=== PATIENT | female | born 1985 | race Caucasian/White ===

== ENCOUNTER 2016-05-26 14:44 | Inpatient (IN) | payer OTHER ==
[2016-06-02] MEDS ORDERED: LACTATED RINGERS 1,000 ML IV PRN (14:55)
[2016-06-02] MEDS ORDERED: OXYTOCIN IN LR 500 ML IV ONE (14:55)
[2016-06-02] MEDS ORDERED: IV START KIT ONE (15:27)
[2016-06-02] MEDS ORDERED: OXYTOCIN 10 UNITS/ML VIAL ONE (15:27)
[2016-06-02] MEDS ORDERED: MINERAL OIL 25 ML BOT ONE (15:28)
[2016-06-02] MEDS ORDERED: PUMP TUBING ONE (15:28)
[2016-06-02] MEDS ORDERED: LIDOCAINE Viscous 2% 15 ML UDCUP ONE (15:28)
[2016-06-02] MEDS ORDERED: LIDOCAINE 1% (PRES FREE) 30 ML VIAL ONE (15:28)
[2016-06-02] MEDS ORDERED: FENTANYL/ROPIVACAINE EPIDURAL 250 ML EP ONE (15:29)
[2016-06-02] MEDS ORDERED: EPIDURAL PUMP SET ONE (15:29)
--- NOTE | 2016-06-02 15:45 | PCMAN ---
OB Admission Note - History : 2 Term: 1 : 0 Abortions (S&E): 0 Livin EDC:: 05/26/16 (by first tri US and LMP) Gestational Age (weeks): 41 Days (#/7): 0 Admit Cervical Dilation:: 4 Admit Cervical Effacement (%):: 70 Admit Station:: -2 Admit Presentaton:: Cephalic Membrane Status: Intact Membranes Comment:: Oligohydramnios, repeat neg SROM exams throughout the week Contractions: Yes Contraction Frequency:: q 5-10min Heart Rate:: 125 (moderate/accelerations present/decels absent) Status:: Cat. I EFW:: 7.5lbs Summary of Course:: Onset to care at 10w3d x 13 visits. ROSALES by 10wk u/s and LMP. pre wt 114lbs, BMI 24.8, TWG 54lbs. Allergies to codeine and vicodin. OB hx: with pit IOL for PROM, delivered OP. : uncomplicated. Declined tdap, flu vaccines in , and UDS at onset to care. Moon has had prodromal labor for the last 1-2 weeks with minimal cervical change. She has been triaged in clinic x 2 for SROM, all exams negative repeatedly. Desires epidural anesthesia in labor. Supported by her . - Labs Blood Type: O (+) positive Hct/Hgb:: 11.3 Rubella Status: Immune GBS Status: Negative Abnormal Labs: Other (SHANNA 3.2 on 06/02/16) Other Labs:: nml 1hr GTT, declined UDS in - Review of Systems ROS neg - Physical Exam General: Afebrile Psych/Mental Status: Mood/Affect Appropriate, Judgment/Insight Intact, Bonding Well Neurological: Grossly Intact, Alert, Oriented x 4, Normal Gait, Normal Speech HEENT: Mucous membr. moist/pink Lungs: Clear to Auscultation Bilaterally, Normal Air Movement Cardiovascular: Regular Rate and Rhythm Rectal Exam: Deferred Extremities: Full ROM Skin: Normal Color, Warm, Dry, Intact - Problems (1) Oligohydramnios Status: Acute Code: [id number]/Plan: A: 30yo with IUP at 41wks Oligohydramnios Not in Labor Reactive NST on admission, FHT Cat.I membranes intact, GBS neg P: Admit to [facility] Epidural anesthesia per plan Oxytocin administration Anticipate (2) Post-dates Status: Acute Code: O48.0Assessment/Plan: A: 30yo with IUP at 41wks Oligohydramnios Not in Labor Reactive NST on admission, FHT Cat.I membranes intact, GBS neg P: Admit to [facility] Epidural anesthesia per plan Oxytocin administration Anticipate
[2016-06-02] MEDS: LACTATED RINGERS 1,000 ML IV SCH ×5 (16:00→21:57)
[2016-06-02 16:40] VITALS: BMI 33.4
[2016-06-02] MEDS ORDERED: SODIUM CHLORIDE 0.9% 500 ML IV PRN (17:00)
[2016-06-02] MEDS ORDERED: METOCLOPRAMIDE HCL 5 MG/ML 2ML VIAL IV PRN (17:00)
[2016-06-02] MEDS ORDERED: LACTATED RINGERS 500 ML IV PRN (17:00)
[2016-06-02] MEDS ORDERED: ONDANSETRON 4 MG/2ML 2 ML VIAL IV PRN (17:00)
[2016-06-02] MEDS ORDERED: NALOXONE HCL 0.4 MG/ML VIAL IV PRN (17:00)
[2016-06-02] MEDS ORDERED: EPHEDRINE SULFATE 50 MG/ML 1ML VIAL IV PRN (17:00)
[2016-06-02 17:11] LABS: HEMATOCRIT 36.2 % (37.0-47.0); HEMOGLOBIN 11.8 gm/l (12.0-16.0); MEAN CELL VOLUME 87.2 fl (81.0-99.0); MEAN CORPUSCULAR HEMOGLOBIN 28.4 pg (27.0-31.0); MEAN CORPUSCULAR HGB CONC 32.6 g/dl (33.0-37.0); RED CELL DISTRIBUTION WIDTH 14.2 % (11.5-14.5)
[2016-06-02] MEDS: FENTANYL/ROPIVACAINE EPIDURAL 250 ML EP SCH (17:18)
[2016-06-02] MEDS ORDERED: ROPIVACAINE 0.5% 30 ML VIAL ONE (17:30)
[2016-06-02] MEDS ORDERED: EPIDURAL PROCEDURE TRAY ONE (17:30)
[2016-06-02] MEDS: OXYTOCIN IN LR 500 ML IV PRN ×6 (19:08→23:39)
--- NOTE | 2016-06-02 19:32 | PDOC36 ---
Provider Note Subject: Labor Progress Note Note: S: Moon is resting comfortably after getting an epidural. She states that her contractions are coming closer together now that she's been able to relax after getting an epidural. O: VS BP 109/69 P93 T 97.6F RR18 SVE 4cm/70%/-3, active fetus, rotating the head Ctx q 8-9 mins lasting 60 to 180 sec. BSL 120 moderate variability, positive accels, no decels Membranes Intact A: 30yo with IUP at 41wks Oligohydramnios Not in Labor, cervix unchanged Demarco Score 8 FHT Cat.I membranes intact, GBS neg P: Continue to change position q 30/40 minutes to facilitate descent and allow pt to sleep. Initate Oxytocin administration per protocol Anticipate active labor and Recheck in 4 hours or when clinically indicated.
--- NOTE | 2016-06-02 22:57 | PDOC36 ---
Provider Note Subject: Labor Progress Note Note: Subject: Labor Progress Note Note: S: Moon states that she has some itching from the epidural and is still able to note when contractions happen. O: VS BP 116/68 P93 T 98.9F RR16 SVE deferred at this time Ctx q 4-6mins lasting 80 to 150 sec. BSL 130 moderate variability, positive accels, no decels Membranes Intact Pitocin infusing at 6mU A: 30yo with IUP at 41wks Oligohydramnios Latent labor FHT Cat.I membranes intact, GBS neg P: Discussed that epidurals don't take away all sensation and that we actually like some feeling during pushing. Discussed possibility of truning down the epidural rate when pushing to facilitate mobility and pushing. Benadryl PRN for itching. Continue to change position q 30/40 minutes to facilitate descent. Encourage patient to rest Continue Oxytocin administration per protocol Anticipate active labor and Recheck in 4 hours or when clinically indicated.
[2016-06-02] MEDS: DIPHENHYDRAMINE HCL 50 MG/1 ML VIAL IV PRN (23:07)
[2016-06-03] MEDS: DIPHENHYDRAMINE HCL 50 MG/1 ML VIAL IV PRN (00:22)
[2016-06-03] MEDS: LACTATED RINGERS 1,000 ML IV SCH ×6 (00:35→16:58)
--- NOTE | 2016-06-03 01:16 | PDOC36 ---
Provider Note Subject: Labor Progress Note Note: S: Moon reports sharp pain in her vagina O: Minimal amount urine noted in bag. SVE - The johnson bulb was palpated through the superior wall of the vagina and the os of the cervix was unable to be reached. After removing the johnson, the patient spontaneously urinated a moderate amount. Repeat SVE revealed unchanged cervix, now posterior and fetus still high. The johnson was replaced and 800mL urine emptied into the bag FHTs BSL 130, mod variability, pos accels, no decels Pitocin at 10 mU A: 30yo with IUP at 41wks Minimal progress r/t full bladder IOL for Oligohydramnios Latent labor FHT Cat I membranes intact, GBS neg P: Continue with Pitocin IOL CEFM Continue to change position q 30/40 minutes to facilitate descent. Encourage patient to rest Anticipate active labor and Recheck in 4 hours or when clinically indicated.
[2016-06-03] MEDS ORDERED: BUPIVACAINE 0.25% (PRES FREE) 30 ML VIAL ONE (01:19)
[2016-06-03] MEDS: OXYTOCIN IN LR 500 ML IV PRN ×3 (02:19→03:21)
[2016-06-03] MEDS ORDERED: CALCIUM CARBONATE 500 MG TAB.CHEW PO PRN (03:57)
--- NOTE | 2016-06-03 04:35 | PDOC36 ---
Provider Note Subject: Labor Progress Note Note: Called by RN to review EFM strip at 0330. O:Starting at 0130, EFM strip has been Cat II for periods of minimal variability , and 2 prolonged decelerations. At 0216, BSL 125, during a period of moderate variability, one prolonged deceleration lasting 190 seconds with a capo of 90 occurred. It resolved with position change. This was followed by a period of minimal variability and occasional late decelerations not >50% of contractions for 30 minutes. SVE by RN at 0250 was 6cm/85%/-3 with more cervix palpable on maternal right. This was followed by a period of moderate variability, positive accelerations. At 0300 BSL 125, another prolonged deceleration lasting 180 sec with a capo at 90 was noted and resolved with position change. Pitocin was decreased by the RN at this time and halved to 4mU at 0328 when minimal variability persisted for approximately 10 minutes. At 0340 acceleration noted with a period of moderate variability. At 0354, the Pitocin was discontinued as UCs were noted to be lasting several minutes in length without aqequate rest in between. Per the Cat II algorithm, since significant decelerations were not with >50% of contractions and she is in active phase of labor it was appropriate to watch for one hour. VS BP 116/68 P93 T 98.9F RR16 SVE per RN 6/85%/-3 Ctx q 1.5-4 mins lasting 60 to 90 sec. BSL 135 moderate variability, positive accels, occasional late decelerations Membranes Intact Pitocin off A: 30yo with IUP at 41wks Oligohydramnios Latent labor FHT Cat II membranes intact, GBS neg P: Will observe for one hour to see if contractions continue and fetus tolerates labor without oxytocin infusing. Will recheck and evaluate for AROM in one hour Trying to simulate lunge positions in bed to facilitate descent and rotation Intrauterine resus measures PRN, RN to notify provider if any concern. Anticipate Recheck in 1 hour or when clinically indicated.
[2016-06-03] MEDS ORDERED: TERBUTALINE SULFATE 1 MG/ML VIAL ONE (07:22)
[2016-06-03] MEDS: FENTANYL/ROPIVACAINE EPIDURAL 250 ML EP SCH (07:25)
[2016-06-03] MEDS ORDERED: ROPIVACAINE 0.75% 20 ML AMP ONE (07:43)
[2016-06-03] MEDS ORDERED: CEFAZOLIN SODIUM 2 GRAM DUPLEX 2 G in Premix (D5W) 50 ml 1 EACH IV PRN (07:52)
[2016-06-03] MEDS ORDERED: CEFAZOLIN SODIUM 2 GRAM DUPLEX 50 ML IV ONE (07:54)
[2016-06-03] MEDS ORDERED: OXYTOCIN 10 UNITS/ML VIAL ONE (07:59)
[2016-06-03] MEDS ORDERED: MORPHINE SULFATE (DURAMORPH) 1 MG/ML 10ML AMP ONE (08:11)
[2016-06-03] MEDS ORDERED: NALOXONE HCL 0.4 MG/ML VIAL IV PRN (08:15)
[2016-06-03] MEDS ORDERED: HYDROMORPHONE HCL 2 MG/ML SYRINGE IV PRN (08:15)
[2016-06-03] MEDS ORDERED: NALBUPHINE HCL 20 MG/ML AMP IV PRN (08:15)
[2016-06-03] MEDS ORDERED: MORPHINE SULFATE 2 MG/ML SYRINGE IV PRN (08:15)
[2016-06-03] MEDS ORDERED: MORPHINE SULFATE 4 MG/ML SYRINGE IV PRN (08:15)
[2016-06-03] MEDS ORDERED: DIPHENHYDRAMINE HCL 50 MG/1 ML VIAL IV PRN ×2 (08:15→09:25)
[2016-06-03] MEDS ORDERED: PROMETHAZINE HCL 25 MG/ML VIAL IM PRN (08:15)
[2016-06-03] MEDS ORDERED: EPHEDRINE SULFATE 50 MG/ML 1ML VIAL IV PRN (08:15)
[2016-06-03] MEDS ORDERED: ONDANSETRON 4 MG/2ML 2 ML VIAL IV PRN (08:15)
[2016-06-03] MEDS ORDERED: MORPHINE SULFATE 10 MG/ML SYRINGE IV PRN (08:15)
[2016-06-03] MEDS ORDERED: TERBUTALINE SULFATE 1 MG/ML VIAL SUB-Q ONE (08:36)
[2016-06-03] MEDS ORDERED: FLU VACC 2016-17 (36MO-64Y)/PF 60 MCG/0.5 ML SYRINGE IM V ONE (08:39)
[2016-06-03] MEDS ORDERED: EPHEDRINE SULFATE UD SYR 25 MG 25 MG/5 ML SYRINGE IV ONE (08:45)
[2016-06-03] MEDS ORDERED: ONDANSETRON 4 MG/2ML 2 ML VIAL ONE (08:46)
[2016-06-03] MEDS ORDERED: LANOLIN 50 APPLIC/7G TUBE TP PRN (09:25)
--- NOTE | 2016-06-03 09:46 | PCMBPN ---
Brief Post Op Note: Date of Procedure: 06/03/16 Start Time: Preoperative Diagnosis: 1. intolerance to labor, category II tracing, prolonged variable deceleration Postoperative Diagnosis: 1. Same Procedure: primary lower segment cesarian section Surgeon: Blaine Ortiz Assist:zakiya carrasco Anesthesia: epidural, toy torrez Findings: term sized uterus, both ovaries and tubes normal, minimal clear amniotic fluid, live baby boy, umbilical cord to side of neck and head with delivery, paula position, 9/9, placenta intact. Condition: stable Complications: none IV Fluids: mLs of LR Urine Output: pink tinged urine which was present before surgery Estimated Blood Loss: 600 mLs Tourniquet Time: N/A Specimens: N/A Implants: Drains: N/A closure carlitos patient tolerated procedure well and was returned to recovery room in stable condition with jhonson draining pink tinged urine (present preoperatively). 2 grams of ancef given before abdominal incision.
[2016-06-03] MEDS ORDERED: LACTATED RINGERS 1,000 ML ONE ×2 (10:49→14:47)
[2016-06-03] MEDS ORDERED: IV START KIT ONE (10:59)
--- NOTE | 2016-06-03 11:06 | HP ---
MOON PENG : 1985 DATE OF ADMISSION: June 03, 2016 HISTORY OF PRESENT ILLNESS: Moon Peng is a 30-year-old female who is a patient of the certified pharmacy technician practice. I was called to evaluate the patient who was having prolonged variable deceleration lasting about ten minutes for possible vacuum delivery. OB HISTORY: Patient is a 2, para 1, 0/0/1, one normal vaginal delivery of a 6 pound 11 ounce baby. 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 PAST MEDICAL HISTORY: Positive for: 1. Osteoarthritis. 2. History of anemia. 3. Breast disorder. She had a breast cyst in the past. FAMILY HISTORY: Positive for gestational diabetes and hypertension. SOCIAL HISTORY: Nonsmoker, nondrinker. REVIEW OF SYSTEMS: Patient is in active labor when I arrived. PHYSICAL EXAM: GENERAL: This is a healthy female in labor and feeling contractions as the epidural kind of wore off. It was a limited exam done due to the emergent nature of the heart tracing. ABDOMEN: Appeared gravid, estimated weight was 8 pounds, category 2 tracing. PELVIC: There was an anterior lip noted, vertex presentation at +1 station. I tried to reduce the anterior lip during a uterine contraction but was unsuccessful, and at this point she was counseled to have a section as a vacuum extraction was not indicated due to the cervix still not being fully dilated. Primary section was ordered, and patient given terbutaline. IMPRESSION: intolerance to labor and prolonged variable deceleration with category 2 tracing. PLAN: Primary lower segment section. Risks, reasons, complications, living will and alternatives were all discussed. Incision type was discussed, all in common language and all questions were answered. Patient signed informed consent with witnesses present at the time of the signing.
--- NOTE | 2016-06-03 11:34 | OP ---
GUCCI KHAN : 1985 [id number] DATE OF OPERATION: June 03, 2016 OPERATION PERFORMED: PRIMARY LOWER SEGMENT SECTION. PREOPERATIVE DIAGNOSIS: intolerance to labor with a category 2 tracing and prolonged variable decelerations. POST OPERATIVE DIAGNOSIS: intolerance to labor with a category 2 tracing and prolonged variable decelerations. SURGEON: Blaine Ortiz M.D. MUTUEL CLERK: 1. Owen Vigil M.D. 2. Michelle Floyd C.N.M. ANESTHESIA: Epidural by Christopher Russo C.R.N.A. PROCEDURE: With patient in the supine position under epidural anesthesia, the Judd was draining pink tinged urine at the onset of the procedure. The patient received 2 g of Ancef prior to the uterine incision. The abdomen was prepared with Chloraprep and draped in the usual manner. After a timeout was performed, the skin was tested and found to be with complete anesthesia. A knife was then used to make a Pfannenstiel incision through the skin. The knife was then used to dissect down to the subcutaneous tissue to the rectus abdominis fascia which was nicked with the knife and carried laterally with Gay scissors. All bleeding points were clamped with Zayra clamps and bovied. The superior portion of the fascia was grasped with Lisa clamps and the medial raphe divided with the Gay scissors and a similar procedure was performed on the lower end of the incision. The muscle was split in the midportion. The peritoneum was identified, picked up with two Zayra clamps and divided in between with the Metzenbaum scissors and stretched laterally. Findings included a term size uterus. Both ovaries and tubes appeared normal. A Iza retractor was placed into the lower portion of the incision. The anterior visceral peritoneum was cut with the Metzenbaum scissors and carried laterally and then the bladder flap was replaced under the Iza retractor. A knife was used to make a lower uterine incision which was stretched laterally. There was minimal clear amniotic fluid noted, and a live baby boy was delivered from the left occiput anterior position. It was noted that the umbilical cord was to one side of the head and neck although it was not a nuchal cord around the baby's neck. Baby was delivered uneventfully. He cried spontaneously. The was 9 and 9 at 1 and 5 minutes respectively. The cord was clamped twice with two Zayra clamps and divided in between with a bandage scissors and then Dr. Vigil brosarah scrub and took over care of the baby. Cord blood was obtained and then the placenta was delivered manually intact. The uterus was placed outside the peritoneal cavity and wrapped in a moist lap. Ring forceps and Dasilva clamps were used to grasp the 3, 6, 9 and 12 o'clock positions of the uterus and the uterus was closed in two layers with #1 Chromic continuous interlocking suture, a second layer imbricating the first. Various bleeding points were bovied or individually sutured with the same material resulting in complete hemostasis. Now with complete hemostasis, the uterus was placed back into the abdominal cavity. It was again inspected and pressure was applied over the uterine incision for approximately five minutes and then when the lap pads were removed again, there was complete hemostasis noted. With complete hemostasis and sponge and instrument count reported as correct, the rectus abdominis muscle was reapproximated with four individual sutures of #1 Chromic material, and then the fascia was closed in right and left halves with #1 Vicryl material locking the first stitch and that was done in a continuous manner. Subcutaneous bleeding points were Bovied prior to closure of the skin, and the skin was closed with carlitos. Estimated blood loss was 600 mL and patient tolerated the procedure well. She was returned to recovery room in stable condition with the Judd draining pink tinged urine which was present prior to the surgery. FINAL DIAGNOSIS: As above.
[2016-06-03] MEDS: HYDROMORPHONE HCL 1 MG/ML SYRINGE IV PRN ×2 (11:36→14:11)
[2016-06-03] MEDS: OXYCODONE/ACETAMINOPHEN 5/325 MG TABLET PO PRN ×2 (15:30→20:53)
[2016-06-03] MEDS: DIPHENHYDRAMINE HCL 25 MG CAPSULE PO PRN ×2 (15:30→20:59)
[2016-06-03] MEDS: IBUPROFEN 800 MG TABLET PO PRN (15:30)
[2016-06-03] MEDS: DOCUSATE SODIUM 100 MG CAPSULE PO SCH (20:53)
[2016-06-03] MEDS ORDERED: SODIUM CHLORIDE 0.9% FLUSH 10 ML ONE (20:58)
[2016-06-04] MEDS: IBUPROFEN 800 MG TABLET PO PRN ×3 (00:07→16:28)
[2016-06-04] MEDS: DIPHENHYDRAMINE HCL 25 MG CAPSULE PO PRN ×4 (04:24→22:11)
[2016-06-04] MEDS: OXYCODONE/ACETAMINOPHEN 5/325 MG TABLET PO PRN ×6 (04:25→23:07)
[2016-06-04 07:06] LABS: HEMOGLOBIN 8.5 gm/l (12.0-16.0)
[2016-06-04] MEDS: PRENATAL VIT/FE FUMARATE/FA 1 TABLET PO SCH (08:46)
[2016-06-04] MEDS: DOCUSATE SODIUM 100 MG CAPSULE PO SCH ×2 (08:46→22:11)
[2016-06-04] MEDS ORDERED: SODIUM CHLORIDE 0.9% FLUSH 10 ML ONE ×2 (11:51→22:08)
[2016-06-05] MEDS: IBUPROFEN 800 MG TABLET PO PRN ×3 (00:44→16:31)
[2016-06-05] MEDS: OXYCODONE/ACETAMINOPHEN 5/325 MG TABLET PO PRN ×5 (03:00→21:50)
[2016-06-05] MEDS: DIPHENHYDRAMINE HCL 25 MG CAPSULE PO PRN ×2 (03:00→21:50)
[2016-06-05] MEDS ORDERED: SODIUM CHLORIDE 0.9% FLUSH 0 ML ONE (05:20)
[2016-06-05] MEDS: PRENATAL VIT/FE FUMARATE/FA 1 TABLET PO SCH (08:07)
[2016-06-05] MEDS: DOCUSATE SODIUM 100 MG CAPSULE PO SCH ×2 (08:07→21:51)
--- NOTE | 2016-06-05 21:36 | PDOC44 ---
- Subjective Day: 2 Reports Flatus, Reports Pain Tolerable, Reports , Reports Lochia Light, Reports Tolerating Regular Diet, Reports Other (had bm), Denies Nausea, Denies Vomiting, Denies Fever - Objective Temp Pulse Resp BP Pulse Ox 97.8 F 110 18 112/65 100 06/05/16 15:35 06/05/16 15:35 06/05/16 15:35 06/05/16 15:35 06/03/16 13:43 Current Medications Generic Name Dose Route Start Last Admin Trade Name Freq PRN Reason Stop Dose Admin Diphenhydramine HCl 25 - 50 mg 06/03/16 09:25 06/05/16 03:00 Benadryl PO 25 mg Q6H PRN Administration Itching (Mild/Moderate) Diphenhydramine HCl 25 - 50 mg 06/03/16 09:25 06/03/16 12:31 Benadryl IV 12.5 mg Q6H PRN Administration Itching (Severe) Docusate Sodium 100 mg 06/03/16 21:00 06/05/16 08:07 Colace PO 100 mg BID DOUGLAS Administration Emollient Ointment 1 applic 06/03/16 09:25 06/05/16 16:33 [id number] TP 1 tube PRN PRN Administration sore nipples Ropivacaine/Fentanyl/NS 250 mls @ 0 mls/hr 06/02/16 17:00 06/03/16 07:25 Fentanyl 2 Mcg/Ml + Ropivacaine 0.125% Ep Bag EP Not Given EPI DOUGLAS Protocol Per Protocol Ibuprofen 800 mg 06/03/16 09:25 06/05/16 16:31 Motrin PO 800 mg Q8H PRN Administration Pain Multivi/Iron Carb/Fe Sulf/FA/Prenat 1 tab 06/04/16 09:00 06/05/16 08:07 Plus PO 1 tab DAILY DOUGLAS Administration Oxycodone/Acetaminophen 1 - 2 tab 06/03/16 09:25 06/05/16 16:31 Percocet 5/325 PO 2 tab Q4H PRN Administration Pain (Moderate) - Physical Exam General: Afebrile, No Acute Distress Fundus: Midline, At Umbilicus Abdomen: Normal Bowel Sounds, Tenderness, Mild Distention Wound MATURITY CHECKER: Dressing in Place, Dressing Clean/Dry/Intact, Well Approximated, Carlitos Intact Disposition: Stable, Anticipate DC Home Tomorrow (doing well; jeanine regular diet with BM. dressing removed. d/c home tomorrow. remove carlitos next sunday.)
[2016-06-06] MEDS: IBUPROFEN 800 MG TABLET PO PRN ×2 (00:55→09:36)
[2016-06-06] MEDS: OXYCODONE/ACETAMINOPHEN 5/325 MG TABLET PO PRN ×3 (02:22→12:24)
[2016-06-06] MEDS: DIPHENHYDRAMINE HCL 25 MG CAPSULE PO PRN ×2 (04:08→12:24)
[2016-06-06 09:00] VITALS: BP 113/66
[2016-06-06] MEDS: PRENATAL VIT/FE FUMARATE/FA 1 TABLET PO SCH (09:36)
[2016-06-06] MEDS: DOCUSATE SODIUM 100 MG CAPSULE PO SCH (09:36)
--- NOTE | 2016-06-06 09:46 | PDOC39B ---
Hospital Course: ADMIT DATE: 06/02/16 DISCHARGE DATE: [] ADMISSION DIAGNOSES: [] PROCEDURES: [] HISTORY OF PRESENT ILLNESS: 30 year old G2 T1 L1 at 41 weeks 1 days presenting with [] HOSPITAL COURSE: The patient presented in active labor and received an epidural. After a persistent category II tracing requiring pitocin to be turned off, the patient stopped making cervical change. A persistently category II tracing caused a recommended primary ceserean section which was uncomplicated. The patient underwent an unremarkable postoperative course. By day of discharge the patient is ambulating, eating, voiding, and passing flatus without difficulty. Pain is controlled and lochia is appropriate. She is [] - Physical Exam Vital Signs: Temp Pulse Resp BP Pulse Ox 98.1 F 103 18 113/66 100 06/06/16 08:51 06/06/16 08:51 06/06/16 08:51 06/06/16 08:51 06/03/16 13:43 General: Afebrile Psych/Mental Status: Mood/Affect Appropriate, Judgment/Insight Intact, Bonding Well Neurological: Grossly Intact, Alert, Oriented x 4 HEENT: Atraumatic, PERRLA, EOMI Lungs: Clear to Auscultation Bilaterally, Normal Air Movement Cardiovascular: Regular Rate and Rhythm, Normal S1, Normal S2 Fundus: Firm, Midline, At Umbilicus Abdomen: Normal Bowel Sounds Lochia: Moderate Extremities: Full ROM Skin: Normal Color, Warm, Dry, Intact Wound: Well Approximated, Cartwright Intact - Discharge Plan Condition: Stable Disposition: Home Instruction Forms: Section Discharge Instructions Prescriptions: Oxycodone HCl/Acetaminophen [PERCOCET 5/325 MG TABLET (SHF)] 1 tab PO Q4-6H PRN #30 tab PRN Reason: Pain
== END 2016-06-06 12:38 | disposition home or self-care (01) | DRG 766 ==
LOC: EDSTATUS 14:44 → FBC 06-02 14:45
PROVIDERS: ADMIT Advanced Practice Midwife; ATTEND Obstetrics & Gynecology
PROC: 3E033VJ Introduction of Other Hormone into Peripheral Vein, Percutaneous Approach (ICD-10-PCS; 2016-06-02)
PROC: 10D00Z1 Extraction of Products of Conception, Low, Open Approach (ICD-10-PCS; principal; 2016-06-03)
DX: O41.03X0 Oligohydramnios, third trimester, not applicable or unspecified (principal); O48.0 Post-term pregnancy; O42.92 Full-term premature rupture of membranes, unspecified as to length of time between rupture and onset of labor; O63.1 Prolonged second stage (of labor); O76 Abnormality in fetal heart rate and rhythm complicating labor and delivery; Z37.0 Single live birth; Z3A.41 41 weeks gestation of pregnancy